=== PATIENT | female | born 1945 | race Caucasian/White ===

== ENCOUNTER 2017-10-20 10:27 | Outpatient (CLI) | payer OTHER | END 2017-10-20 10:34 | disposition home or self-care (01) | LOC: SONOGRAMA 10:27 | DX: E04.8 Other specified nontoxic goiter (principal) ==

== ENCOUNTER 2018-02-09 12:49 | Outpatient (CLI) | payer OTHER | END 2018-02-09 12:54 | disposition home or self-care (01) | LOC: SONOGRAMA 12:49 → MAMO-SONO 14:15 | DX: R59.0 Localized enlarged lymph nodes (principal) ==

== ENCOUNTER 2019-01-27 11:02 | Outpatient (CLI) | payer OTHER | END 2019-01-28 06:20 | disposition home or self-care (01) | LOC: SONOGRAMA 11:02 | DX: E04.2 Nontoxic multinodular goiter (principal) ==

== ENCOUNTER 2019-02-02 13:22 | Outpatient (CLI) | payer OTHER | END 2019-02-02 14:00 | disposition home or self-care (01) | LOC: NUCLEAR 13:22 | DX: M81.0 Age-related osteoporosis without current pathological fracture (principal) ==

== ENCOUNTER 2020-07-27 09:40 | Outpatient (CLI) | payer OTHER | END 2020-07-27 10:06 | disposition home or self-care (01) | LOC: SONOGRAMA 09:40 | DX: E04.2 Nontoxic multinodular goiter (principal); K76.1 Chronic passive congestion of liver ==

== ENCOUNTER 2021-06-03 10:41 | Outpatient (CLI) | payer OTHER | END 2021-06-03 10:49 | disposition home or self-care (01) | LOC: SONOGRAMA 10:41 | PROVIDERS: ATTEND Internal Medicine | DX: K76.3 Infarction of liver (principal) ==

== ENCOUNTER 2022-08-08 13:30 | Outpatient (CLI) | payer OTHER | END 2022-08-08 13:52 | disposition home or self-care (01) | LOC: MRI 13:30 | PROVIDERS: ATTEND Specialist | DX: G31.89 Other specified degenerative diseases of nervous system (principal) | CPT/HCPCS: 70551 ==

== ENCOUNTER 2022-11-25 12:10 | Outpatient (CLI) | payer OTHER | END 2022-11-25 12:17 | disposition home or self-care (01) | LOC: RAD 12:10 | PROVIDERS: ATTEND Obstetrics & Gynecology Gynecology | DX: R05.8 Other specified cough (principal); J06.9 Acute upper respiratory infection, unspecified ==

== ENCOUNTER 2023-09-15 10:27 | Outpatient (CLI) | payer OTHER | END 2023-09-15 10:28 | disposition home or self-care (01) | LOC: NUCLEAR 10:27 | PROVIDERS: ATTEND Internal Medicine | DX: I65.23 Occlusion and stenosis of bilateral carotid arteries (principal); I73.9 Peripheral vascular disease, unspecified ==

== ENCOUNTER 2023-11-13 12:00 | Outpatient (CLI) | payer OTHER | END 2023-11-13 12:04 | disposition home or self-care (01) | LOC: MRI 12:00 | PROVIDERS: ATTEND Obstetrics & Gynecology Maternal & Fetal Medicine | DX: M54.59 Other low back pain (principal); R29.6 Repeated falls | CPT/HCPCS: 72148 ==